=== PATIENT | male | born 1970 | race Caucasian/White ===

== ENCOUNTER 2019-05-29 07:19 | Emergency (ER) | payer BC ==
[2019-05-29 07:33] VITALS: BP 114/79
--- NOTE | 2019-05-29 08:04 | UC ---
Throat Pain/Nasal Carlos HPI - HPI Summary HPI Summary: 48-year-old male who has had head congestion and cough over the past 3 weeks. He states now he has postnasal drainage and cough some green sputum. He states a few nights ago he had an intermittent fever. - History of Current Complaint Chief Complaint: UCGeneralIllness Stated Complaint: COUGH Time Seen by Provider: 05/29/19 07:55 Hx Obtained From: Patient Onset/Duration: Gradual Onset Severity: Mild Pain Intensity: 0 Cough: Productive - Productive cough of greenish sputum. Associated Signs & Symptoms: Positive: Nasal Discharge - Allergies/Home Medications Allergies/Adverse Reactions: Allergies Allergy/AdvReac Type Severity Reaction Status Date / Time No Known Allergies Allergy Verified 05/29/19 07:28 Home Medications: Home Medications guaiFENesin [Mucinex] 1 dose PO ONCE 05/29/19 [History Confirmed 05/29/19] PMH/Surg Hx/FS Hx/Imm Hx - Additional Past Medical History Additional PMH: Hx of Lyme Disease Previously Healthy: Yes Endocrine History: Thyroid Disease - Surgical History Surgical History: None - Family History Known Family History: Positive: Diabetes - Social History Lives: With Family Alcohol Use: None Substance Use Type: None Smoking Status (MU): Never Smoked Tobacco - Immunization History Most Recent Influenza Vaccination: not this season Review of Systems All Other Systems Reviewed And Are Negative: Yes Constitutional: Positive: Fever - Patient states a few nights ago for 2 or 3 nitroglycerin he awakened with what he thought was a fever because he was drenched in sweat. ENT: Positive: Sore Throat, Nasal Discharge, Sinus Congestion Respiratory: Positive: Cough Is Patient Immunocompromised?: No Physical Exam Triage Information Reviewed: Yes Appearance: Well-Appearing, No Pain Distress, Well-Nourished Vital Signs: Initial Vital Signs Temp 97.9 F 05/29/19 07:29 Pulse 59 05/29/19 07:29 Resp 17 05/29/19 07:29 BP 114/79 05/29/19 07:29 Pulse Ox 100 05/29/19 07:29 Vital Signs Reviewed: Yes Eyes: Positive: Conjunctiva Clear ENT: Positive: Pharynx normal, Nasal congestion, Nasal drainage - Yellow nasal coryza., TM red - Right tympanic membrane with good landmarks and light reflex, pearly genao. Left tympanic membrane is erythematous with poor landmarks and light reflex., Uvula midline. Negative: Tonsillar swelling, Tonsillar exudate, Trismus, Muffled voice, Hoarse voice Neck: Positive: Supple, Nontender, No Lymphadenopathy Respiratory: Positive: Lungs clear, Normal breath sounds, No respiratory distress, No accessory muscle use Cardiovascular: Positive: RRR, No Murmur, Pulses Normal, Brisk Capillary Refill Musculoskeletal Exam: Normal Neurological Exam: Normal Psychological Exam: Normal Skin Exam: Normal Throat Pain/Nasal Course/Dx - Course Course Of Treatment: Patient is comfortable here. I'm going to treated with Augmentin for the ear infection which will also cover the sinuses. - Differential Dx/Diagnosis Provider Diagnosis: Left otitis media Discharge ED - Sign-Out/Discharge Documenting (check all that apply): Patient Departure All imaging exams completed and their final reports reviewed: No Studies - Discharge Plan Condition: Good Disposition: HOME Prescriptions: Amoxicillin/Clavulanate TAB* [Augmentin TAB 875*] 875 mg PO BID 10 Days #20 tab Patient Education Materials: Ear Infection (ED) Referrals: Chapo Argueta MD [Primary Care Provider] - Additional Instructions: Increase Fluids, take the Augmentin with food. Follow-up with your primary care provider if no improvement in 4 or 5 days. - Billing Disposition and Condition Condition: GOOD Disposition: Home
== END 2019-05-29 08:09 | disposition home or self-care (01) ==
LOC: UCCORT 07:19
DX: H66.92 Otitis media, unspecified, left ear (principal); J02.9 Acute pharyngitis, unspecified; R09.81 Nasal congestion
CPT/HCPCS: 99212; G0463